=== PATIENT | female | born 1940 | race Caucasian/White ===

== ENCOUNTER → 2023-06-27 15:16 | Outpatient (REF) | payer OTHER, SELFPAY | LOC: HWRAD 15:16 | PROVIDERS: ATTENDING PHYSICIAN Nurse Practitioner | DX: M54.50 Low back pain, unspecified (principal); R20.2 Paresthesia of skin | CPT/HCPCS: 72050; 72110 ==

== ENCOUNTER → 2024-08-08 13:42 | Outpatient (REF) | payer OTHER, SELFPAY | LOC: RCS 13:42 | PROVIDERS: ATTENDING PHYSICIAN Internal Medicine Cardiovascular Disease | DX: I44.1 Atrioventricular block, second degree (principal); I44.0 Atrioventricular block, first degree; I45.10 Unspecified right bundle-branch block | CPT/HCPCS: 93306 ==